=== PATIENT | female | born 1995 | race Caucasian/White ===

== ENCOUNTER → 2016-09-10 | Outpatient (CLI) | payer OTHER ==
[~2016-09-10] MED LIST: BENZ1TAB7 PO; BREX1TAB; DOXY100C PO; FLUC150T PO; HYDR25TA85 PO; NORG1TAB16 PO; ORAL BIRTH CONTROL PO; POLY10DR3 OP; SULF1TAB3 PO; TRAZ-170 PO; VILA10TA PO
--- NOTE | 2016-09-10 11:48 | DI ---
Indication: ITS.REASON: E28.2 POLYCYSTIC OVARIAN SYNDROME PROCEDURE: US PELVIC NON OB W/TRANS VAG: Encounter: Initial Comparison: None FINDINGS: Transvaginal and transabdominal pelvic imaging was performed. The uterus measures 5.2 x 2.4 x 2.9 cm. The parenchyma is homogeneous without fibroids. The endometrial stripe measures 4 mm in thickness. There is no evidence of focal endometrial mass. Both ovaries are identified and show evidence of polycystic ovarian syndrome with an increased number of peripheral follicles. The right ovary measures 3.1 x 2.4 x 2.4 cm. The left ovary measures 3 x 2.1 x 2.1 cm. There are no abnormal adnexal masses detected. Normal Doppler flow to both ovaries. Trace free pelvic fluid. IMPRESSION: Sonographic findings of polycystic ovarian syndrome. .
== END ==
LOC: IMA 10:45
PROVIDERS: ATTEND Family Medicine
DX: E28.2 Polycystic ovarian syndrome (principal)